=== PATIENT | male | born 1995 | race Caucasian/White ===

== ENCOUNTER 2018-09-16 11:04 | Emergency (ER) | payer OTHER ==
--- NOTE | 2018-09-16 11:06 | EDM.PDOC ---
ED HPI GENERAL MEDICAL PROBLEM - General Chief Complaint: Upper Extremity Injury/Pain Stated Complaint: fall on ice/ right wrist pain/swelling Time Seen by Provider: 09/16/18 11:06 Source of Information: Reports: Patient. Denies: Old Records (No [facility] records available) History Limitations: Reports: No Limitations - History of Present Illness INITIAL COMMENTS - FREE TEXT/NARRATIVE: Patient was brought to the emergency room via transport vehicle from [facility] for evaluation of a Workmen's Compensation injury, which occurred at about 10 AM this morning. The patient was performing his normal work duties when he accidentally slipped on the ice falling onto his right wrist. He did complain of initial 5-6/10 pain with subsequent improvement to 3-4/10 after placement of an ice pack. No other medications or treatment prior to arrival. Patient is right-handed however has not injured this area in the past. He denies any head injury, loss of consciousness, change in mental status, neck/back pain, paresthesias, neurological deficits, or other complaints or injuries. No recent history of abdominal pain, heartburn, nausea, diarrhea, melena, gross hematochezia, or any food intolerance, including fatty foods, etc.. The patient also denies any recent fever, cough, wheezing, dyspnea, etc.. Onset: Today, Sudden Onset Date: 09/16/18 Onset Time: 10:00 Duration: Constant, Improving Location: Reports: Upper Extremity, Right. Denies: Head, Face, Neck, Chest, Abdomen, Back, Pelvis, Upper Extremity, Left, Lower Extremity, Left, Lower Extremity, Right, Radiates to Quality: Reports: Sharp, Stabbing Severity: Moderate Improves with: Reports: Rest Worsens with: Reports: Movement Context: Reports: Trauma (As above) Associated Symptoms: Denies: Confusion, Chest Pain, Cough, Diaphoresis, Fever/ Chills, Headaches, Loss of Appetite, Nausea/Vomiting, Rash, Seizure, Shortness of Breath, Weakness Treatments LENS GAUGER: Reports: Cold Therapy Right Wrist Pain Score (Numeric/FACES): 4 - Related Data Allergies Allergy/AdvReac Type Severity Reaction Status Date / Time No Known Allergies Allergy Verified 09/16/18 11:07 Home Meds: Home Meds . [No Known Home Meds] 09/16/18 [History] Past Medical History HEENT History: Reports: Impaired Vision, Other (See Below) Other HEENT History: He wears glasses. Review of Systems - Review of Systems Review Of Systems: ROS reveals no pertinent complaints other than HPI. ED EXAM, GENERAL - Physical Exam Exam: See Below Exam Limited By: No Limitations General Appearance: Alert, WD/WN, No Apparent Distress Head: Atraumatic, Normocephalic. No: Facial Swelling, Facial Tenderness, Sinus Tenderness Neck: Normal Inspection, Supple, Non-Tender, Full Range of Motion. No: Lymphadenopathy (L), Lymphadenopathy (R), Thyromegaly Respiratory/Chest: No Respiratory Distress, Lungs Clear, Normal Breath Sounds, No Accessory Muscle Use, Chest Non-Tender. No: Pleural Rub, Retractions Cardiovascular: Normal Peripheral Pulses, Regular Rate, Rhythm, No Edema, No Gallop, No JVD, No Murmur, No Rub. No: Gallop/S3, Gallop/S4, Friction Rub Peripheral Pulses: 2+: Radial (L), Radial (R) GI/Abdominal: Normal Bowel Sounds, Soft, Non-Tender, No Organomegaly, No Distention, No Abnormal Bruit, No Mass, Pelvis Stable, Other (Obese). No: Guarding (Male) Exam: Deferred Rectal (Males) Exam: Deferred Back Exam: Normal Inspection, Full Range of Motion. No: CVA Tenderness (L), CVA Tenderness (R), Muscle Spasm Extremities: No Pedal Edema, Normal Capillary Refill, Joint Swelling, Arm Pain ( Mild to moderate palpation pain over the right radius with some mild swelling and borderline deformity), Limited Range of Motion (Mild right wrist secondary to injury). No: Jewel's Sign, Increased Warmth Neurological: Alert, Oriented, CN II-XII Intact, Normal Cognition, Normal Gait, No Motor/Sensory Deficits Psychiatric: Normal Affect, Normal Mood Skin Exam: Warm, Dry, Intact, Normal Color, No Rash. No: Diaphoretic, Ecchymosis, Wound/Incision Lymphatic: No Adenopathy Course - Orders/Labs/Meds Orders: Active Orders 24 hr Category Date Time Status Wrist Comp Min 3V Rt [CR] Stat Exams 09/16/18 11:07 Ordered Obtain Past Medical Record [OM.PC] Routine Oth 09/16/18 11:06 Active - Radiology Interpretation Free Text/Narrative:: X-rays of the right wrist, complete, shows evidence of a mild compression distal radial fracture with no angulation, displacement, etc. Navicular bone appears normal. Departure - Departure Time of Disposition: 11:25 Disposition: Still A Patient 32 Condition: Good Clinical Impression: Wrist fracture, closed Qualifiers: Encounter type: initial encounter Laterality: right Qualified Code(s): S62.101A - Fracture of unspecified carpal bone, right wrist, initial encounter for closed fracture - Discharge Information Referrals: PCP,Unknown [Primary Care Provider] - Forms: ED Department Discharge - Problem List & Annotations (1) Wrist fracture, closed SNOMED Code(s): 4958898 Code(s): S62.109A - FRACTURE OF UNSP CARPAL BONE, UNSP WRIST, INIT FOR CLOS FX Status: Acute Priority: High Current Visit: Yes Onset Date: 09/16/18 Annotation/Comment:: Compression fracture of the right wrist. Note care transferred to Dr. Schrader for completion of care including placement of short arm palmar splint. She was updated concerning patient care. Patient is aware of his fracture. [place] work excuse and Workmen's Compensation forms still need to be completed. Qualifiers: Encounter type: initial encounter Laterality: right Qualified Code(s): S62.101A - Fracture of unspecified carpal bone, right wrist, initial encounter for closed fracture - Problem List Review Problem List Initiated/Reviewed/Updated: Yes - My Orders Last 24 Hours: My Active Orders 09/16/18 11:06 Obtain Past Medical Record [OM.PC] Routine 09/16/18 11:07 Wrist Comp Min 3V Rt [CR] Stat - Assessment/Plan Last 24 Hours: My Active Orders 09/16/18 11:06 Obtain Past Medical Record [OM.PC] Routine 09/16/18 11:07 Wrist Comp Min 3V Rt [CR] Stat Assessment:: As above Plan: As above
== END 2018-09-16 12:12 | disposition home or self-care (01) ==
LOC: LL.ED 11:04
DX: S52.571A Other intraarticular fracture of lower end of right radius, initial encounter for closed fracture (principal); W00.0XXA Fall on same level due to ice and snow, initial encounter
CPT/HCPCS: 29125; 73110-RT; 99283